=== PATIENT | male | born 2000 | race African-American/Black ===

== ENCOUNTER 2020-12-10 20:34 | Emergency (ER) | payer SELFPAY ==
[~2020-12-10] VITALS: Ht 182.9 cm; Wt 65.8 kg
[2020-12-10 20:41] VITALS: Ht 182.9 cm; Wt 65.8 kg
[2020-12-10 22:14] LABS: PLATELET COUNT 174 x10^3mcL (152-348); RED CELL DISTRIBUTION WIDTH 13.4 % (12.1-16.2)
[2020-12-10 22:33] LABS: CALCIUM 9.4 mg/dL (8.5-10.1); CHLORIDE SERUM 105 mmol/L (98-107); CREATININE SERUM 1.1 mg/dL (0.7-1.3); GFR1 > 60 mL/min; GLUCOSE SERUM 98 mg/dL (74-106); POTASSIUM SERUM 3.9 mmol/L (3.5-5.1); SODIUM SERUM 140 mmol/L (136-145)
[2020-12-10 22:38] LABS: ALKALINE PHOSPHATASE 76 U/L (46-116); ALT/SGPT 39 U/L (16-63); AST/SGOT 27 U/L (15-37); BILIRUBIN TOTAL 0.2 mg/dL (0.20-1.00); TOTAL PROTEIN, SERUM 7.4 g/dL (6.4-8.2)
[2020-12-10 23:17] VITALS: BP 104/61
[2020-12-11 00:19] LABS: BAND NEUTROPHIL 1 % (0-10); MONOCYTE 3 % (0-7); SEGMENTED NEUTROPHILS 71 % (37-75); rbc morphology (normal/abnorm) NORMAL (NORMAL)
== END 2020-12-11 00:12 | disposition home or self-care (01) ==
LOC: ED 20:34
PROVIDERS: Emergency Medicine
DX: R00.2 Palpitations (principal); R42 Dizziness and giddiness; J45.909 Unspecified asthma, uncomplicated; Z88.0 Allergy status to penicillin
CPT/HCPCS: 83880

== ENCOUNTER 2020-12-14 14:45 | Emergency (ER) | payer SELFPAY | END 2020-12-14 16:12 | disposition left against medical advice (07) | LOC: ED 14:45 | DX: Z53.21 Procedure and treatment not carried out due to patient leaving prior to being seen by health care provider (principal) ==

== ENCOUNTER 2020-12-17 15:38 | Emergency (ER) | payer SELFPAY ==
[~2020-12-17] VITALS: Ht 182.9 cm; Wt 69.4 kg
[2020-12-17 15:44] VITALS: Ht 182.9 cm; Wt 69.4 kg
[2020-12-17 17:54] VITALS: BP 117/51
== END 2020-12-17 17:54 | disposition home or self-care (01) ==
LOC: ED 15:38
DX: R00.2 Palpitations (principal); R06.02 Shortness of breath; R20.2 Paresthesia of skin; J45.909 Unspecified asthma, uncomplicated; F17.210 Nicotine dependence, cigarettes, uncomplicated; Z88.0 Allergy status to penicillin